=== PATIENT | female | born 1930 | race Hispanic/Latino ===

== ENCOUNTER 2017-11-23 18:47 | Inpatient (IN) | payer MEDICARE ==
[~2017-11-23] VITALS: Ht 152.4 cm; Wt 79.0 kg
[2017-11-23] MEDS ORDERED: IPRATROPIUM/ALBUTEROL SULFATE 3 ML SOLUTION IH ONE (19:20)
[2017-11-23 19:22] LABS: BASOPHILS % (AUTO) 0.5 % (0.0-5.0); EOSINOPHILS % (AUTO) 0.8 % (0.0-8.0); HEMATOCRIT 27.9 % (36-48); LYMPHOCYTES % (AUTO) 13.1 % (21.0-51.0); MEAN CORPUSCULAR HEMOGLOBIN 29.5 pg (27.0-33.0); MEAN CORPUSCULAR HGB CONC 32.2 g/dL (32.0-36.0); MEAN CORPUSCULAR VOLUME 91.4 fL (79-99); MONOCYTES % (AUTO) 6.5 % (3.0-13.0); NEUTROPHILS % (AUTO) 79.1 % (40.0-77.0); PLATELET COUNT (AUTO) 193 K/uL (130-400); RED BLOOD CELL COUNT(AUTO) 3.05 MIL/uL (4.00-5.50); RED CELL DISTRIBUTION WIDTH 15.2 % (11.0-15.5); WHITE BLOOD COUNT (AUTO) 13.1 K/uL (4.8-10.8)
[2017-11-23] MEDS ORDERED: FUROSEMIDE 10 MG/ML 4ML VIAL ONE (19:27)
[2017-11-23] MEDS ORDERED: FUROSEMIDE 10 MG/ML 2ML VIAL ONE (19:28)
[2017-11-23] MEDS ORDERED: ACETAMINOPHEN 325 MG TAB ONE (19:28)
[2017-11-23 19:32] LABS: INR 1.09 (0.85-1.15); PARTIAL THROMBOPLASTIN TIME 33.1 SEC (26.3-35.5); PROTHROMBIN TIME 11.4 SEC (9.6-11.6)
[2017-11-23 19:39] LABS: CREATININE 1.8 mg/dL (0.5-1.5); POTASSIUM 5.5 mmol/L (3.5-5.1)
[2017-11-23] MEDS ORDERED: VERAPAMIL HCL 2.5 MG/ML VIAL IVP SCH (19:45)
[2017-11-23 19:50] LABS: B-TYPE NATRIURETIC PEPTIDE 1630 pg/mL (0-100)
[2017-11-23 20:04] LABS: ALBUMIN 2.6 g/dL (3.5-5.0); BILIRUBIN,TOTAL 0.4 mg/dL (0.2-1.0); CREATINE KINASE MB 2.5 ng/mL (0.5-3.6); TOTAL PROTEIN, SERUM 8.5 g/dL (6.0-8.3)
[2017-11-23 23:15] LABS: APPEARANCE,URINE Cloudy (CLEAR); BILIRUBIN,URINE Negative (NEGATIVE); COLOR,URINE Yellow (YELLOW); GLUCOSE, URINE (UA) Negative (NEGATIVE); KETONES,URINE Negative (NEGATIVE); LEUKOCYTE ESTERASE ,URINE Trace (NEGATIVE); NITRATE,URINE Negative (NEGATIVE); OCCULT BLOOD,URINE Small (NEGATIVE); PROTEIN,URINE Trace (NEGATIVE); UROBILINOGEN,URINE 0.2 mg/dL (0.2-1.0)
[2017-11-23 23:28] LABS: BACTERIA,URINE Few /HPF (None Seen); RBC,URINE 0-1 /HPF (0-1); SQUAMOUS EPITHELIAL CELL,UR Rare /LPF (0-2); WBC,URINE None Seen /HPF (0-1)
[2017-11-23] MEDS ORDERED: HYDRALAZINE HCL 20 MG/ML VIAL IV PRN (23:30)
[2017-11-23] MEDS ORDERED: ACETAMINOPHEN 325 MG TAB PO PRN ×2 (23:30)
[2017-11-23] MEDS ORDERED: ONDANSETRON HCL 4 MG/2 ML VIAL IV PRN (23:30)
[2017-11-23] MEDS ORDERED: MEROPENEM 500MG+NS 50ML 50 ML IV SCH (23:30)
[2017-11-24] VITALS: BP 134/80
[2017-11-24] MEDS: IPRATROPIUM/ALBUTEROL SULFATE 3 ML SOLUTION IH SCH ×5 (00:19→23:53)
[2017-11-24] MEDS: SODIUM POLYSTYRENE SULFONATE 15 GM/60 ML ML PO SCH ×2 (00:42→20:00)
[2017-11-24] MEDS: MEROPENEM 500 MG VIAL IVP SCH ×4 (00:42→23:22)
[2017-11-24] MEDS ORDERED: LEVO75TA4 PO (02:17)
[2017-11-24] MEDS ORDERED: AMIO100T4 PO (02:17)
[2017-11-24] MEDS ORDERED: VALS1TAB77 PO (02:17)
[2017-11-24] MEDS ORDERED: ACET-48 PO (02:17)
[2017-11-24] MEDS ORDERED: ESOM40CA54 PO (02:17)
[2017-11-24] MEDS ORDERED: FERR325T22 PO (02:17)
[2017-11-24] MEDS ORDERED: ALLO100T PO (02:17)
[2017-11-24] MEDS ORDERED: METO50TA18 PO (02:17)
[2017-11-24] MEDS ORDERED: CHOL200013 PO (02:17)
[2017-11-24] MEDS ORDERED: FURO20TA6 PO (02:17)
[2017-11-24] MEDS ORDERED: DOCU-116 PO (02:17)
[2017-11-24] MEDS ORDERED: APIX5TAB4 PO (02:17)
[2017-11-24 04:00] VITALS: BP 133/71
[2017-11-24 05:51] LABS: MEAN CORPUSCULAR HEMOGLOBIN 30.1 pg (27.0-33.0); MEAN CORPUSCULAR HGB CONC 33.1 g/dL (32.0-36.0); MEAN CORPUSCULAR VOLUME 90.9 fL (79-99); NUCLEATED RED BLOOD CELLS 0.1 % (0.0-0.19); PLATELET COUNT (AUTO) 174 K/uL (130-400); RED BLOOD CELL COUNT(AUTO) 2.97 MIL/uL (4.00-5.50); RED CELL DISTRIBUTION WIDTH 15.1 % (11.0-15.5); WHITE BLOOD COUNT (AUTO) 7.8 K/uL (4.8-10.8)
[2017-11-24 05:58] LABS: ALBUMIN 2.4 g/dL (3.5-5.0); BILIRUBIN,TOTAL 0.5 mg/dL (0.2-1.0); CREATININE 1.9 mg/dL (0.5-1.5); MAGNESIUM 1.8 mg/dL (1.80-2.40); POTASSIUM 5.1 mmol/L (3.5-5.1); TOTAL PROTEIN, SERUM 7.8 g/dL (6.0-8.3)
[2017-11-24 06:07] LABS: BASOPHILS % (MANUAL) 1 % (0-2); LYMPHOCYTES % (MANUAL) 21 % (22-44); MONOCYTES % (MANUAL) 2 % (2-9); REACTIVE LYMPHOCYTES 5 % (0-0); SEGMENTED NEUTROPHILS % 71 % (40-70)
[2017-11-24 06:08] LABS: MAN.DIFF COMMENT-IMPRESSION MANUAL DIFFERENTIAL; PLATELET MORPHOLOGY COMMENT ADEQUATE
[2017-11-24 06:09] LABS: B-TYPE NATRIURETIC PEPTIDE 1570 pg/mL (0-100)
[2017-11-24 07:00] VITALS: BP 150/87
[2017-11-24] MEDS: INSULIN HUMULIN R 100 UNIT/ML 3ML SQ SCH ×4 (07:11→20:19)
[2017-11-24] MEDS: FUROSEMIDE 10 MG/ML 4ML VIAL IVP SCH ×2 (07:45→20:06)
[2017-11-24] MEDS: PANTOPRAZOLE SODIUM 40 MG TABLET.DR PO SCH (07:46)
[2017-11-24] MEDS ORDERED: HEPARIN SODIUM 5000UNIT/ML 1ML VIAL SQ SCH (09:00)
[2017-11-24 11:00] VITALS: BP 143/90
[2017-11-24 16:00] VITALS: BP 102/61
[2017-11-24 20:05] VITALS: BP 119/56
[2017-11-24] MEDS: APIXABAN 2.5 MG TABLET PO SCH (20:07)
[2017-11-24] MEDS ORDERED: APIXABAN 5 MG TABLET PO SCH (21:00)
[2017-11-24] MEDS ORDERED: METOPROLOL TARTRATE 50 MG TAB PO SCH (21:00)
[2017-11-25] VITALS (8 sets, daily range): BP systolic 107–161; BP diastolic 56–94
[2017-11-25 04:10] LABS: HEMATOCRIT 24.8 % (36-48); MEAN CORPUSCULAR HGB CONC 32.9 g/dL (32.0-36.0); MEAN CORPUSCULAR VOLUME 91.1 fL (79-99); PLATELET COUNT (AUTO) 167 K/uL (130-400); RED BLOOD CELL COUNT(AUTO) 2.72 MIL/uL (4.00-5.50); RED CELL DISTRIBUTION WIDTH 15.1 % (11.0-15.5); WHITE BLOOD COUNT (AUTO) 7.3 K/uL (4.8-10.8)
[2017-11-25 04:15] LABS: CREATININE 1.9 mg/dL (0.5-1.5); MAGNESIUM 1.8 mg/dL (1.80-2.40); POTASSIUM 4.4 mmol/L (3.5-5.1)
[2017-11-25 04:29] LABS: B-TYPE NATRIURETIC PEPTIDE 860 pg/mL (0-100)
[2017-11-25] MEDS: IPRATROPIUM/ALBUTEROL SULFATE 3 ML SOLUTION IH SCH ×3 (06:15→18:46)
[2017-11-25] MEDS: INSULIN HUMULIN R 100 UNIT/ML 3ML SQ SCH ×4 (07:30→21:06)
[2017-11-25] MEDS: MEROPENEM 500 MG VIAL IVP SCH ×3 (08:14→23:09)
[2017-11-25] MEDS: PANTOPRAZOLE SODIUM 40 MG TABLET.DR PO SCH (08:15)
[2017-11-25] MEDS: LEVOTHYROXINE 75 MCG TABLET PO SCH (08:15)
[2017-11-25] MEDS: APIXABAN 2.5 MG TABLET PO SCH ×2 (08:15→20:19)
[2017-11-25] MEDS: FUROSEMIDE 10 MG/ML 2ML VIAL IV SCH ×2 (10:34→20:21)
[2017-11-25] MEDS: CARVEDILOL 12.5 MG TABLET PO SCH ×2 (10:35→20:20)
[2017-11-25] MEDS: SODIUM POLYSTYRENE SULFONATE 15 GM/60 ML ML PO SCH (19:37)
[2017-11-26] MEDS: IPRATROPIUM/ALBUTEROL SULFATE 3 ML SOLUTION IH SCH ×3 (00:28→11:25)
[2017-11-26 03:51] VITALS: BP 108/64
[2017-11-26 05:01] LABS: CREATININE 1.9 mg/dL (0.5-1.5); POTASSIUM 4.4 mmol/L (3.5-5.1)
[2017-11-26] MEDS: INSULIN HUMULIN R 100 UNIT/ML 3ML SQ SCH ×4 (05:52→20:35)
[2017-11-26 07:44] VITALS: BP 114/58
[2017-11-26] MEDS: LEVOTHYROXINE 75 MCG TABLET PO SCH (08:21)
[2017-11-26] MEDS: MEROPENEM 500 MG VIAL IVP SCH ×3 (08:21→23:38)
[2017-11-26] MEDS: PANTOPRAZOLE SODIUM 40 MG TABLET.DR PO SCH (08:21)
[2017-11-26] MEDS: APIXABAN 2.5 MG TABLET PO SCH ×2 (08:21→20:34)
[2017-11-26] MEDS: FUROSEMIDE 10 MG/ML 2ML VIAL IV SCH ×2 (08:21→20:34)
[2017-11-26] MEDS: CARVEDILOL 12.5 MG TABLET PO SCH ×2 (08:22→20:35)
[2017-11-26 11:32] VITALS: BP 106/57
[2017-11-26 16:31] VITALS: BP 109/60
[2017-11-26] MEDS: SODIUM POLYSTYRENE SULFONATE 15 GM/60 ML ML PO SCH (19:41)
[2017-11-26 20:09] VITALS: BP 98/69
[2017-11-26 23:43] VITALS: BP 122/55
[2017-11-27 02:57] VITALS: BP 107/65
[2017-11-27 03:48] LABS: HEMATOCRIT 24.5 % (36-48); MEAN CORPUSCULAR HEMOGLOBIN 29.5 pg (27.0-33.0); MEAN CORPUSCULAR HGB CONC 32.6 g/dL (32.0-36.0); MEAN CORPUSCULAR VOLUME 90.4 fL (79-99); NUCLEATED RED BLOOD CELLS 0.1 % (0.0-0.19); PLATELET COUNT (AUTO) 220 K/uL (130-400); RED BLOOD CELL COUNT(AUTO) 2.71 MIL/uL (4.00-5.50); RED CELL DISTRIBUTION WIDTH 15.7 % (11.0-15.5); WHITE BLOOD COUNT (AUTO) 4.7 K/uL (4.8-10.8)
[2017-11-27] MEDS: INSULIN HUMULIN R 100 UNIT/ML 3ML SQ SCH ×4 (05:59→20:46)
[2017-11-27 07:46] VITALS: BP 114/59
[2017-11-27] MEDS: APIXABAN 2.5 MG TABLET PO SCH ×2 (08:59→20:04)
[2017-11-27] MEDS: FUROSEMIDE 10 MG/ML 2ML VIAL IV SCH (08:59)
[2017-11-27] MEDS: PANTOPRAZOLE SODIUM 40 MG TABLET.DR PO SCH (08:59)
[2017-11-27] MEDS: LEVOTHYROXINE 75 MCG TABLET PO SCH (08:59)
[2017-11-27] MEDS: CARVEDILOL 12.5 MG TABLET PO SCH ×2 (08:59→20:05)
[2017-11-27] MEDS: MEROPENEM 500 MG VIAL IVP SCH ×2 (09:00→17:35)
[2017-11-27 09:24] LABS: CREATININE 1.8 mg/dL (0.5-1.5); POTASSIUM 4.2 mmol/L (3.5-5.1)
[2017-11-27 11:34] VITALS: BP 116/73
[2017-11-27 16:20] VITALS: BP 100/52
[2017-11-27] MEDS: SODIUM POLYSTYRENE SULFONATE 15 GM/60 ML ML PO SCH (19:21)
[2017-11-27 19:37] VITALS: BP 123/62
[2017-11-27] MEDS ORDERED: FUROSEMIDE 20 MG TABLET PO SCH (21:00)
[2017-11-27 23:19] VITALS: BP 124/63
[2017-11-28] MEDS: MEROPENEM 500 MG VIAL IVP SCH ×3 (00:12→17:27)
[2017-11-28 03:36] VITALS: BP 107/62
[2017-11-28 04:25] LABS: HEMATOCRIT 24.2 % (36-48); MEAN CORPUSCULAR HEMOGLOBIN 30.9 pg (27.0-33.0); MEAN CORPUSCULAR HGB CONC 33.9 g/dL (32.0-36.0); MEAN CORPUSCULAR VOLUME 91.1 fL (79-99); PLATELET COUNT (AUTO) 205 K/uL (130-400); RED BLOOD CELL COUNT(AUTO) 2.66 MIL/uL (4.00-5.50); RED CELL DISTRIBUTION WIDTH 15.4 % (11.0-15.5); WHITE BLOOD COUNT (AUTO) 4.3 K/uL (4.8-10.8)
[2017-11-28] MEDS: INSULIN HUMULIN R 100 UNIT/ML 3ML SQ SCH ×4 (05:34→21:00)
[2017-11-28 07:00] VITALS: BP 117/66
[2017-11-28 08:26] LABS: CREATININE 1.8 mg/dL (0.5-1.5); POTASSIUM 4.4 mmol/L (3.5-5.1)
[2017-11-28] MEDS: FUROSEMIDE 40 MG TABLET PO SCH (08:49)
[2017-11-28] MEDS: LEVOTHYROXINE 75 MCG TABLET PO SCH (08:49)
[2017-11-28] MEDS: APIXABAN 2.5 MG TABLET PO SCH ×2 (08:49→21:25)
[2017-11-28] MEDS: PANTOPRAZOLE SODIUM 40 MG TABLET.DR PO SCH (08:49)
[2017-11-28] MEDS: CARVEDILOL 12.5 MG TABLET PO SCH ×2 (08:50→21:30)
[2017-11-28 09:09] LABS: T4 (THYROXINE) 9.2 mcg/dL (4.7-13.3); THYROID STIMULATING HORMONE 4.63 uIU/mL (0.36-3.74)
[2017-11-28 11:34] VITALS: BP 111/71
[2017-11-28 16:42] VITALS: BP 104/59
[2017-11-28 20:00] VITALS: BP 115/63
[2017-11-29] VITALS: BP 113/62
[2017-11-29] MEDS: MEROPENEM 500 MG VIAL IVP SCH ×3 (02:22→21:28)
[2017-11-29] MEDS: SODIUM POLYSTYRENE SULFONATE 15 GM/60 ML ML PO SCH ×2 (02:22→20:51)
[2017-11-29 04:21] LABS: HEMATOCRIT 26.3 % (36-48); MEAN CORPUSCULAR HEMOGLOBIN 29.9 pg (27.0-33.0); MEAN CORPUSCULAR HGB CONC 32.4 g/dL (32.0-36.0); MEAN CORPUSCULAR VOLUME 92.2 fL (79-99); PLATELET COUNT (AUTO) 239 K/uL (130-400); RED BLOOD CELL COUNT(AUTO) 2.85 MIL/uL (4.00-5.50); RED CELL DISTRIBUTION WIDTH 15.2 % (11.0-15.5); WHITE BLOOD COUNT (AUTO) 3.9 K/uL (4.8-10.8)
[2017-11-29 04:28] LABS: CREATININE 1.6 mg/dL (0.5-1.5)
[2017-11-29] MEDS: INSULIN HUMULIN R 100 UNIT/ML 3ML SQ SCH ×4 (06:10→21:00)
[2017-11-29 07:56] VITALS: BP 132/81
[2017-11-29] MEDS: CARVEDILOL 25 MG TABLET PO SCH ×2 (09:22→21:30)
[2017-11-29] MEDS: LEVOTHYROXINE 75 MCG TABLET PO SCH (09:22)
[2017-11-29] MEDS: FUROSEMIDE 40 MG TABLET PO SCH (09:22)
[2017-11-29] MEDS: APIXABAN 2.5 MG TABLET PO SCH ×2 (09:22→21:29)
[2017-11-29] MEDS: PANTOPRAZOLE SODIUM 40 MG TABLET.DR PO SCH (09:22)
[2017-11-29 11:56] VITALS: BP 107/55
[2017-11-29 16:41] VITALS: BP 124/59
[2017-11-29 19:59] VITALS: BP 142/60
[2017-11-29 23:55] VITALS: BP 103/75
[2017-11-30 04:17] VITALS: BP 104/66
[2017-11-30] MEDS: INSULIN HUMULIN R 100 UNIT/ML 3ML SQ SCH ×4 (05:59→21:00)
[2017-11-30 06:01] LABS: CREATININE 1.7 mg/dL (0.5-1.5); POTASSIUM 3.9 mmol/L (3.5-5.1); THYROID STIMULATING HORMONE 5.76 uIU/mL (0.36-3.74)
[2017-11-30 07:45] VITALS: BP 107/67
[2017-11-30] MEDS: APIXABAN 2.5 MG TABLET PO SCH ×2 (09:09→21:39)
[2017-11-30] MEDS: MEROPENEM 500 MG VIAL IVP SCH ×3 (09:09→17:03)
[2017-11-30] MEDS: CARVEDILOL 25 MG TABLET PO SCH ×2 (09:10→21:39)
[2017-11-30] MEDS: LEVOTHYROXINE 75 MCG TABLET PO SCH (09:11)
[2017-11-30] MEDS: PANTOPRAZOLE SODIUM 40 MG TABLET.DR PO SCH (09:11)
[2017-11-30] MEDS: FUROSEMIDE 40 MG TABLET PO SCH (09:11)
[2017-11-30 11:47] VITALS: BP 108/63
[2017-11-30 16:25] VITALS: BP 99/59
[2017-11-30 19:46] VITALS: BP 106/71
[2017-11-30 23:25] VITALS: BP 111/76
[2017-11-30] MEDS: SODIUM POLYSTYRENE SULFONATE 15 GM/60 ML ML PO SCH (23:45)
[2017-12-01] MEDS: MEROPENEM 500 MG VIAL IVP SCH ×3 (00:11→17:03)
[2017-12-01 03:35] LABS: HEMATOCRIT 25.3 % (36-48); MEAN CORPUSCULAR VOLUME 90.7 fL (79-99); PLATELET COUNT (AUTO) 255 K/uL (130-400); RED BLOOD CELL COUNT(AUTO) 2.79 MIL/uL (4.00-5.50); RED CELL DISTRIBUTION WIDTH 15.6 % (11.0-15.5); WHITE BLOOD COUNT (AUTO) 5.1 K/uL (4.8-10.8)
[2017-12-01 03:39] VITALS: BP 137/76
[2017-12-01 03:45] LABS: BAND NEUTROPHILS % (MANUAL) 2 % (0-2); BASOPHILS % (MANUAL) 1 % (0-2); EOSINOPHILS % (MANUAL) 3 % (1-6); LYMPHOCYTES % (MANUAL) 35 % (22-44); MAN.DIFF COMMENT-IMPRESSION MANUAL DIFFERENTIAL; MONOCYTES % (MANUAL) 6 % (2-9); PLATELET MORPHOLOGY COMMENT ADEQUATE; SEGMENTED NEUTROPHILS % 53 % (40-70)
[2017-12-01 03:53] LABS: ALBUMIN 2.3 g/dL (3.5-5.0); BILIRUBIN,TOTAL 0.3 mg/dL (0.2-1.0); POTASSIUM 4.1 mmol/L (3.5-5.1); TOTAL PROTEIN, SERUM 6.8 g/dL (6.0-8.3)
[2017-12-01] MEDS: LEVOTHYROXINE 100 MCG TABLET PO SCH (06:21)
[2017-12-01] MEDS: INSULIN HUMULIN R 100 UNIT/ML 3ML SQ SCH ×4 (06:29→21:00)
[2017-12-01 07:38] VITALS: BP 102/73
[2017-12-01] MEDS: PANTOPRAZOLE SODIUM 40 MG TABLET.DR PO SCH (08:23)
[2017-12-01] MEDS: CARVEDILOL 25 MG TABLET PO SCH ×2 (08:23→21:00)
[2017-12-01] MEDS: APIXABAN 2.5 MG TABLET PO SCH ×2 (08:23→21:53)
[2017-12-01] MEDS: FUROSEMIDE 40 MG TABLET PO SCH (08:24)
[2017-12-01 11:16] VITALS: BP 115/69
[2017-12-01 16:18] VITALS: BP 117/77
[2017-12-01] MEDS: AMOXICILLIN/POTASSIUM CLAV 500-125 TABLET PO SCH (18:13)
[2017-12-01 20:00] VITALS: BP 98/57
[2017-12-01] MEDS: SODIUM POLYSTYRENE SULFONATE 15 GM/60 ML ML PO SCH (22:52)
[2017-12-01 23:40] VITALS: BP 115/70
[2017-12-02 03:54] VITALS: BP 107/66
[2017-12-02 03:59] LABS: HEMATOCRIT 25.3 % (36-48); MEAN CORPUSCULAR HEMOGLOBIN 30.8 pg (27.0-33.0); MEAN CORPUSCULAR HGB CONC 33.9 g/dL (32.0-36.0); MEAN CORPUSCULAR VOLUME 90.9 fL (79-99); NUCLEATED RED BLOOD CELLS 0.1 % (0.0-0.19); PLATELET COUNT (AUTO) 265 K/uL (130-400); RED BLOOD CELL COUNT(AUTO) 2.78 MIL/uL (4.00-5.50); RED CELL DISTRIBUTION WIDTH 15.7 % (11.0-15.5); WHITE BLOOD COUNT (AUTO) 5.4 K/uL (4.8-10.8)
[2017-12-02 04:06] LABS: CREATININE 1.5 mg/dL (0.5-1.5); POTASSIUM 4.4 mmol/L (3.5-5.1)
[2017-12-02 04:13] LABS: BASOPHILS % (MANUAL) 1 % (0-2); EOSINOPHILS % (MANUAL) 9 % (1-6); LYMPHOCYTES % (MANUAL) 43 % (22-44); MAN.DIFF COMMENT-IMPRESSION MANUAL DIFFERENTIAL; MONOCYTES % (MANUAL) 6 % (2-9); SEGMENTED NEUTROPHILS % 41 % (40-70)
[2017-12-02 04:15] LABS: PLATELET MORPHOLOGY COMMENT ADEQUATE
[2017-12-02] MEDS: AMOXICILLIN/POTASSIUM CLAV 500-125 TABLET PO SCH ×2 (06:36→17:10)
[2017-12-02] MEDS: INSULIN HUMULIN R 100 UNIT/ML 3ML SQ SCH ×4 (06:39→20:49)
[2017-12-02 07:27] VITALS: BP 125/73
[2017-12-02] MEDS: LEVOTHYROXINE 100 MCG TABLET PO SCH (07:45)
[2017-12-02] MEDS: APIXABAN 2.5 MG TABLET PO SCH ×2 (09:25→20:41)
[2017-12-02] MEDS: PANTOPRAZOLE SODIUM 40 MG TABLET.DR PO SCH (09:25)
[2017-12-02] MEDS: CARVEDILOL 25 MG TABLET PO SCH ×2 (09:25→20:41)
[2017-12-02 11:23] VITALS: BP 107/57
[2017-12-02 16:13] VITALS: BP 114/58
[2017-12-02 20:41] VITALS: BP 114/58
== END 2017-12-02 21:25 | DRG 871 ==
LOC: EDH 18:47 → EDHIP 22:00 → 2DH 23:39
PROVIDERS: ADMIT Family Medicine; ATTEND Family Medicine
PROC: 5A09357 Assistance with Respiratory Ventilation, Less than 24 Consecutive Hours, Continuous Positive Airway Pressure (ICD-10-PCS; principal; 2017-11-24)
DX: A41.59 Other Gram-negative sepsis (principal); J96.00 Acute respiratory failure, unspecified whether with hypoxia or hypercapnia; I50.43 Acute on chronic combined systolic (congestive) and diastolic (congestive) heart failure; J18.9 Pneumonia, unspecified organism; I48.1 Persistent atrial fibrillation; E11.21 Type 2 diabetes mellitus with diabetic nephropathy; N18.4 Chronic kidney disease, stage 4 (severe); N17.9 Acute kidney failure, unspecified; I13.0 Hypertensive heart and chronic kidney disease with heart failure and stage 1 through stage 4 chronic kidney disease, or unspecified chronic kidney disease; E87.5 Hyperkalemia; E11.22 Type 2 diabetes mellitus with diabetic chronic kidney disease; E66.2 Morbid (severe) obesity with alveolar hypoventilation; D64.9 Anemia, unspecified; E03.9 Hypothyroidism, unspecified; E78.5 Hyperlipidemia, unspecified; H91.90 Unspecified hearing loss, unspecified ear; I48.2 Chronic atrial fibrillation; M10.9 Gout, unspecified; Z79.01 Long term (current) use of anticoagulants; Z79.4 Long term (current) use of insulin; Z87.01 Personal history of pneumonia (recurrent); Z99.81 Dependence on supplemental oxygen; Z68.34 Body mass index [BMI] 34.0-34.9, adult
CPT/HCPCS: 36415; 71045; 71250; 80048; 80053; 80061; 81001; 82550; 82553; 82948; 83605; 83735; 83880; 84436; 84439; 84443; 84484; 85025; 85027; 85610; 85730; 87040; 87088; 87186; 93005; 93306; 93970; 94640; 94660; 94664; 97039; 99291; A4218; J1644; J1815; J1940; J2185; J3490